=== PATIENT | female | born 1970 | race American Indian/Alaskan Native ===

== ENCOUNTER 2018-05-14 07:06 | Day surgery (SDC) | payer BC ==
[~2018-05-14 07:06] MED LIST: NACL 0.9% 1000 ML 1,000 ML IV SCH
[2018-05-14] MEDS ORDERED: XYLOCAINE MPF 2% ONE (07:30)
--- NOTE | 2018-05-14 08:18 | Anesthesia Consultation ---
Anesthesia Consult and Med Hx Date of service: 05/14/18 - Airway Anesthetic Teeth Evaluation: Good ROM Head & Neck: Adequate Mental/Hyoid Distance: Adequate Mallampati Class: Class II Intubation Access Assessment: Probably Good - Pre-Operative Health Status ASA Pre-Surgery Classification: ASA2 Proposed Anesthetic Plan: MAC - Gastrointestinal Hx Gastroesophageal Reflux Disease: Yes (dysphagea) - Endocrine Hx Hypothyroidism: Yes - Other Systems Hx Obesity: Yes (s/p Gastric bypass)
--- NOTE | 2018-05-14 08:18 | Anesthesia Day of Surgery ---
Anesthesia Day of Surgery - Day of Surgery Patient Examined: Yes Patient H&P Reviewed: Yes Patient is NPO: Yes
[2018-05-14] MEDS ORDERED: DIPRIVAN 10 MG/ML IV ONE (08:21)
--- NOTE | 2018-05-14 08:51 | Short Stay Summary ---
Short Stay Documentation Date of service: 05/14/18 Narrative H&P: The patient presents for EGD and possible dilation for dysphagia. History of gastric bypass surgery and esophageal stricture dilation in the past. - History Past Medical History: hypothyroidism Past Surgical History: Other (gastric bypass surgery 2005) Social history: no significant social history, , lives with family, no smoking, no alcohol abuse - Allergies and Medications Current Medications: Allergies Sulfa (Sulfonamide Antibiotics) Allergy (Verified 05/13/18 13:17) Unknown Home Medications Medication Instructions Recorded Confirmed Last Taken Type Levothyroxine [Synthroid] 1 tab PO DAILY 05/13/18 05/13/18 Unknown History Active Medications Sodium Chloride (Nacl 0.9% 1000 Ml) 1,000 mls @ 50 mls/hr IV DIRECT WALDO Last Admin: 05/14/18 08:08 Dose: 50 mls/hr - Physical exam General appearance: no acute distress, well-nourished Integumentary: no rash, no growths, no abnormal pigmentation HEENT: Atraumatic, PERRLA, EOMI, Mucous membr. moist/pink Lungs: Clear to auscultation, Normal air movement Breasts: deferred Heart: Regular rate, Normal S1, Normal S2, No murmurs Gastrointestinal: normoactive bowel sounds, no tenderness, no distended, no masses, no organomegaly, no hepatomegaly, no splenomegaly, no obese Female Genitourinary: deferred Rectal Exam: deferred Extremities: no ischemia, pulses intact, pulses symmetrical, No edema, normal temperature, normal color, Full ROM Neurological: Normal gait, Normal speech, Strength at 5/5 X4 ext, Normal tone, Sensation intact, Cranial nerves 3-12 NL - Brief post op/procedure progress note Date of procedure: 05/14/18 Findings: see dictated report Estimated blood loss: none Pathology: none Condition: stable - Disposition Condition at discharge: Good Disposition: DC-01 TO HOME OR SELFCARE - Discharge Diagnoses (1) Dysphagia Status: Acute Short Stay Discharge Plan Activity: other (no driving for 24 hours) Weight Bearing Status: Full Weight Bearing Diet: regular Follow up with: YANNA AMAYA MD [Other] - 7 Days
--- NOTE | 2018-05-14 08:56 | Operative Report ---
Operative Report Operative Report: Date of procedure: 05/14/2018 Procedure: Esophagogastroduodenoscopy with empiric balloon dilation of the distal [id number] mm. Preprocedure diagnosis: Dysphagia to solid foods Post procedure diagnosis: Gastric bypass anatomy. Dilated esophagus with no overt stricture. Dysmotility is suspected. Endoscopist: Dr. Barnes Anesthesia: Monitored anesthesia care per anesthesia department Medications: Propofol per anesthesia Estimated blood loss: 0 After careful discussion of the nature and purpose of the procedure as well as details the technique risks benefits and alternatives consent was obtained. The patient was placed in the left lateral decubitus position and medicated per anesthesia. The tip of the [employer] EQ 570 video scope was passed per orum under direct vision into the esophagus and advanced into the stomach, through the gastrojejunal anastomosis and into the upper bowel. The jejunum appeared completely normal and the anastomosis was widely patent. A small to medium size gastric pouch was present. The lower esophageal sphincter appeared somewhat patulous and the esophagus appeared somewhat dilated. No mucosal lesions were seen in the stomach or the esophagus. The scope could be retroflexed in the pouch and there no lesion seen in the cardia. The scope was then withdrawn in the forward position. The esophagogastric junction was at [ 38 cm. Esophageal dilation was then performed with a qyufder-[id number]-pjaxy balloon dilator from 18-20 mm empirically over the esophagogastric junction. Dilation was performed over approximately 1-1/2-2 minutes. No mucosal lesions were seen in the esophagus on careful inspection during withdrawal of the scope. The procedure was was well tolerated and the patient was observed in recovery. Impressions: Mildly dilated esophagus with no definite stricture. Dysmotility is more probable in this setting. Medium size gastric pouch with gastric bypass anatomy. Widely patent gastrojejunal anastomosis. Status post balloon dilation of the esophagogastric junction. Plan: Further observation. If the patient does not improve after dilation, then esophageal motility study should be considered. Electronically signed: Lamin Barnes MD
[2018-05-14 09:16] VITALS: BP 134/75
--- NOTE | 2018-05-14 16:17 | Post Anesthesia Evaluation ---
- Post Anesthesia Evaluation Patient Participated: Yes Airway Patent: Yes Stable Respiratory Function: Yes Nausea/Vomiting: No Temp > 96.8F: Yes Pain Manageable: Yes Adequeate Hydration: Yes Anesthesia Complications: No Block Receding Appropriately: No
== END 2018-05-14 07:07 | disposition home or self-care (01) ==
LOC: GIO 07:06
PROVIDERS: ATTEND Internal Medicine Gastroenterology
DX: K22.8 Other specified diseases of esophagus (principal); K21.9 Gastro-esophageal reflux disease without esophagitis; E66.9 Obesity, unspecified; E03.9 Hypothyroidism, unspecified; Z98.84 Bariatric surgery status; Z88.0 Allergy status to penicillin; Z68.30 Body mass index [BMI] 30.0-30.9, adult
CPT/HCPCS: 43249; C1726; J2704; J7030